=== PATIENT | male | born 1980 | race Caucasian/White ===

== ENCOUNTER 2018-11-21 15:46 | Emergency (ER) | payer OTHER ==
[~2018-11-21] VITALS: Ht 165.1 cm; Wt 109.8 kg
[2018-11-21 15:59] VITALS: BP 122/76
[2018-11-21] MEDS ORDERED: NORFLEX100 MG PO (16:49)
[2018-11-21] MEDS ORDERED: NAPROSYN500 MG PO (16:49)
== END 2018-11-21 16:52 | disposition home or self-care (01) ==
LOC: ER 15:46
DX: G44.209 Tension-type headache, unspecified, not intractable (principal)